=== PATIENT | male | born 2000 | race Caucasian/White ===

== ENCOUNTER 2025-01-13 01:34 | Emergency (ER) | payer OTHER ==
[~2025-01-13] VITALS: Ht 165.1 cm; Wt 77.6 kg
[2025-01-13 01:40] VITALS: PULSE 90; RESP 19; TEMP 98.4
[2025-01-13] MEDS ORDERED: PHENERGAN SUPP25 MG PO (01:50)
[2025-01-13] MEDS ORDERED: PHENERGAN SUPP25 MG PR (01:50)
[2025-01-13] MEDS ORDERED: MIRALAX17 GM PO (01:50)
[2025-01-13] MEDS: DIPHENHYDRAMINE HCL 25 MG CAP PO ONE (02:04)
[2025-01-13] MEDS: PROMETHAZINE HCL (IM) 25 MG/ML VIAL IM ONE (02:04)
[2025-01-13 02:13] VITALS: BP 131/72; PULSE 90; RESP 19; TEMP 98.4; O2SAT 96
== END 2025-01-13 02:15 | disposition home or self-care (01) ==
LOC: FSED 01:40
DX: R11.0 Nausea (principal); K59.00 Constipation, unspecified; F41.9 Anxiety disorder, unspecified
CPT/HCPCS: 96372; 99283; J2550